=== PATIENT | female | born 1945 | race Caucasian/White ===

== ENCOUNTER 2021-07-02 08:48 | Day surgery (SDC) | payer MEDICARE, OTHER ==
[2021-07-01 16:13] LABS: BASOPHILS % (AUTO) 0.4 % (0-1); EOSINOPHILS # (AUTO) 0.2 X10'3 (0-0.9); EOSINOPHILS % (AUTO) 2.5 % (0-6); HEMATOCRIT 44.3 % (35.0-45.0); HEMOGLOBIN 15.3 g/dl (12.0-16.0); LYMPHOCYTES # (AUTO) 1.9 X10'3 (1.1-4.8); LYMPHOCYTES % (AUTO) 25.3 % (21-51); MEAN CORPUSCULAR HEMOGLOBIN 33.4 PG (27.0-31.0); MEAN CORPUSCULAR HGB CONC 34.6 g/dL (33.0-36.5); MEAN CORPUSCULAR VOLUME 96.7 FL (78-98); MONOCYTES # (AUTO) 0.6 X10'3 (0-0.9); MONOCYTES % (AUTO) 8.7 % (2-12); NEUTROPHILS # (AUTO) 4.7 X10'3 (1.8-7.7); NEUTROPHILS % (AUTO) 63.1 % (42-75); PLATELET COUNT 271 X10'3 (140-440); RED BLOOD COUNT 4.58 X10'6 (4.20-5.60); RED CELL DISTRIBUTION WIDTH 12.3 % (11.5-14.5); WHITE BLOOD COUNT 7.4 X10'3 (4.5-11.0)
[2021-07-01 16:26] LABS: PARTIAL THROMBOPLASTIN TIME 25 SECONDS (22-32)
[2021-07-01 16:27] LABS: ALBUMIN 3.9 G/DL (3.4-5.0); ANION GAP 10 (8-16); BLOOD UREA NITROGEN 13 MG/DL (7-18); BUN/CREATININE RATIO 13.5 (6.6-38.0); CALCIUM 9.5 MG/DL (8.5-10.1); CHLORIDE 104 MMOL/L (99-107); CREATININE 0.96 MG/DL (0.40-0.90); GLUCOSE 112 MG/DL (70-104); POTASSIUM 4.3 MMOL/L (3.5-5.1); SODIUM 140 MMOL/L (135-145); TOTAL CARBON DIOXIDE 26.1 MMOL/L (24-32); eGFR 57 ML/MIN
[2021-07-02] VITALS (14 sets, daily range): BP systolic 102–165; BP diastolic 50–91
[~2021-07-02] VITALS: Ht 177.8 cm; Wt 90.4 kg
[2021-07-02] MEDS ORDERED: LORazepam 0.5 MG tablet PO PRN (09:20)
[2021-07-02] MEDS ORDERED: normal saline 1,000 ML IV SCH (09:20)
[2021-07-02] MEDS ORDERED: diphenhydrAMINE 25mg capsule PO PRN (09:20)
[2021-07-02] MEDS ORDERED: verapamil 2.5 mg/ml inj IV ONE (09:21)
[2021-07-02] MEDS ORDERED: midazolam 1 mg/ML 2ml injection ONE (09:21)
[2021-07-02] MEDS ORDERED: nitroGLYCERIN-Tridil 50MG/D5W 250 ML IV ONE (09:21)
[2021-07-02] MEDS ORDERED: iohexol 350 MG/ML 50ML vial IV ONE ×3 (09:22→11:26)
[2021-07-02] MEDS ORDERED: iohexol 350MG/ML 100ml bottle IV ONE ×2 (09:22→10:46)
[2021-07-02] MEDS ORDERED: fentaNYL/PF 50MCG/1 ML 2ML syringe ONE (09:22)
[2021-07-02] MEDS ORDERED: heparin 1,000unit/ml 10ml vial 10 ML ONE (09:22)
[2021-07-02] MEDS ORDERED: LIDOcaine 1% (10mg/ml)w/preservative injection 20ml MDV ONE (09:22)
[2021-07-02] MEDS ORDERED: LIDOcaine/PRILOcaine 5gm cream TP ONE (09:30)
[2021-07-02] MEDS ORDERED: CLOP75TA34 PO (09:30)
[2021-07-02] MEDS ORDERED: MAGN400C PO (09:30)
[2021-07-02] MEDS ORDERED: ASPI-1265 PO (09:30)
[2021-07-02] MEDS ORDERED: METO100T7 PO (09:30)
[2021-07-02] MEDS ORDERED: ISOS60TA71 PO (09:30)
[2021-07-02] MEDS ORDERED: ROSU20TA2 PO (09:30)
[2021-07-02] MEDS ORDERED: NITR0.4T51 SL (09:30)
[2021-07-02] MEDS ORDERED: LIRA0.6P SQ (09:30)
[2021-07-02] MEDS ORDERED: heparin 25,000 UNIT/250ml bag 250 ML IV ONE (10:55)
[2021-07-02] MEDS ORDERED: clopidogrel 300mg tablet ONE (11:32)
[2021-07-02 11:53] LABS: ISTAT HGB ART 13.3 g/dl (12.0-16.0); ISTAT Hct ART 39 %PCV (35-48); ISTAT O2 SATURATION ARTERIAL 93 % (95-98); ISTAT SOURCE ART
[2021-07-02 16:11] LABS: ISTAT Hct MIX 38 %PCV (35-48); ISTAT O2 SATURATION MIX VENOUS 68 % (60-80); ISTAT SOURCE VEN
[2021-07-02] MEDS ORDERED: VITAMIN B3 PO (16:44)
[2021-07-02] MEDS ORDERED: [UNRECOGNIZED DRUG - CODE] TOP (16:44)
[2021-07-02] MEDS ORDERED: CHOL200012 PO (16:44)
[2021-07-02] MEDS ORDERED: MULT-1085 PO (16:44)
[2021-07-02] MEDS ORDERED: UBID100C16 PO (16:44)
[2021-07-02] MEDS ORDERED: FLUO15CR12 TOP (16:44)
[2021-07-02] MEDS ORDERED: CALC500T11 PO (16:44)
[2021-07-02] MEDS ORDERED: SPIR100T5 PO (16:44)
== END 2021-07-02 18:49 | disposition home or self-care (01) ==
LOC: SSTAY O 08:48
PROVIDERS: ATTEND Internal Medicine Cardiovascular Disease
DX: R94.39 Abnormal result of other cardiovascular function study (principal); T82.855A Stenosis of coronary artery stent, initial encounter; I25.119 Atherosclerotic heart disease of native coronary artery with unspecified angina pectoris; E11.9 Type 2 diabetes mellitus without complications; I10 Essential (primary) hypertension; E78.5 Hyperlipidemia, unspecified; I65.29 Occlusion and stenosis of unspecified carotid artery; I25.2 Old myocardial infarction; I35.0 Nonrheumatic aortic (valve) stenosis; I27.20 Pulmonary hypertension, unspecified; E55.9 Vitamin D deficiency, unspecified; G62.9 Polyneuropathy, unspecified; E66.9 Obesity, unspecified; Z68.28 Body mass index [BMI] 28.0-28.9, adult; Z88.8 Allergy status to other drugs, medicaments and biological substances; Z86.73 Personal history of transient ischemic attack (TIA), and cerebral infarction without residual deficits; Z79.899 Other long term (current) drug therapy; Z79.01 Long term (current) use of anticoagulants; Z79.82 Long term (current) use of aspirin; Z90.721 Acquired absence of ovaries, unilateral; Z95.5 Presence of coronary angioplasty implant and graft; Z82.49 Family history of ischemic heart disease and other diseases of the circulatory system; Y83.8 Other surgical procedures as the cause of abnormal reaction of the patient, or of later complication, without mention of misadventure at the time of the procedure; Y92.89 Other specified places as the place of occurrence of the external cause
CPT/HCPCS: 36415; 76937; 80048; 82803; 85014; 85025; 85347; 85610; 85730; 93005; 93460; 99152; 99153; C1725; C1751; C1769; C1874; C1894; C9600; J1644; J2001; J2250; J3010; J7030; Q0163; Q9967; 75710; A4620; A5120; A6258; J3490

== ENCOUNTER 2024-06-09 10:38 | Day surgery (SDC) | payer MEDICARE, OTHER ==
[2024-06-09] VITALS (18 sets, daily range): BP systolic 119–177; BP diastolic 42–117; PULSE 83–99; RESP 12–25; TEMP 98.7; O2SAT 94–98
[~2024-06-09] VITALS: Ht 177.8 cm; Wt 91.7 kg
[~2024-06-09 10:38] MED LIST: ASPI-1265 PO; CALC500T11 PO; CHOL200012 PO; CLOP75TA34 PO; FLUO15CR12 TOP; ISOS60TA71 PO; LIRA0.6P SQ; MAGN400C PO; METO100T7 PO; MULT-1085 PO; NITR0.4T51 SL; ROSU20TA2 PO; SPIR100T5 PO; UBID100C16 PO; VITAMIN B3 PO; [UNRECOGNIZED DRUG - CODE] TOP
[2024-06-09 11:35] LABS: BASOPHILS % (AUTO) 0.5 % (0-1); EOSINOPHILS # (AUTO) 0.2 X10'3 (0-0.9); EOSINOPHILS % (AUTO) 4.1 % (0-6); HEMATOCRIT 42.7 % (35.0-45.0); HEMOGLOBIN 14.2 g/dl (12.0-16.0); LYMPHOCYTES # (AUTO) 1.3 X10'3 (1.1-4.8); LYMPHOCYTES % (AUTO) 31.1 % (21-51); MEAN CORPUSCULAR HEMOGLOBIN 32.6 PG (27.0-31.0); MEAN CORPUSCULAR HGB CONC 33.4 g/dL (33.0-36.5); MEAN CORPUSCULAR VOLUME 97.6 FL (78-98); MEAN PLATELET VOLUME 7.8 FL (7.4-10.4); MONOCYTES # (AUTO) 0.4 X10'3 (0-0.9); NEUTROPHILS # (AUTO) 2.2 X10'3 (1.8-7.7); NEUTROPHILS % (AUTO) 54.3 % (42-75); PLATELET COUNT 179 X10'3 (140-440); RED BLOOD COUNT 4.37 X10'6 (4.20-5.60); WHITE BLOOD COUNT 4.1 X10'3 (4.5-11.0)
[2024-06-09 11:40] LABS: ALBUMIN 3.5 G/DL (3.4-5.0); ANION GAP 7 (8-16); BLOOD UREA NITROGEN 14 MG/DL (7-18); BUN/CREATININE RATIO 16.5 (10.0-20.0); CHLORIDE 108 MMOL/L (99-107); CREATININE 0.85 MG/DL (0.40-0.90); GLUCOSE 125 MG/DL (70-104); POTASSIUM 3.9 MMOL/L (3.5-5.1); SODIUM 140 MMOL/L (135-145); TOTAL CARBON DIOXIDE 24.9 MMOL/L (24-32); eCRCL 60 ML/MIN; eGFR 65 ML/MIN
[2024-06-09] MEDS ORDERED: verapamil 2.5 mg/ml inj IV ONE (11:48)
[2024-06-09] MEDS ORDERED: LIDOcaine 1% (10mg/ml) 2ml vial ONE (11:48)
[2024-06-09 11:49] LABS: APTT 24 SECONDS (22-32); PROTHROMBIN TIME 10.3 SECONDS (9.0-12.0)
[2024-06-09] MEDS ORDERED: fentaNYL/PF 50MCG/1 ML 2ML syringe ONE (11:49)
[2024-06-09] MEDS ORDERED: heparin 1,000unit/ml 10ml vial 10 ML ONE (11:49)
[2024-06-09] MEDS ORDERED: iohexol 350MG/ML 100ml bottle IV ONE ×2 (11:49→13:08)
[2024-06-09] MEDS ORDERED: midazolam 1 mg/ML 2ml injection ONE (11:49)
[2024-06-09] MEDS ORDERED: iohexol 350 MG/ML 50ML vial IV ONE (11:49)
[2024-06-09] MEDS ORDERED: nitroGLYCERIN 500mcg/5mL D5W 5 ML IV ONE ×2 (11:51→13:20)
[2024-06-09] MEDS: diphenhydrAMINE 25mg capsule PO PRN (11:53)
[2024-06-09] MEDS: LORazepam 0.5 MG tablet PO PRN (11:53)
[2024-06-09] MEDS: normal saline 1,000 ML IV SCH (11:54)
[2024-06-09] MEDS ORDERED: hydrALAZINE 20mg/ml inj. ONE (12:59)
[2024-06-09] MEDS ORDERED: heparin 25,000 UNIT/250ml bag 250 ML IV ONE (13:15)
[2024-06-09] MEDS ORDERED: clopidogrel 300mg tablet ONE (13:24)
[2024-06-09 13:34] LABS: ISTAT HGB ART 13.6 g/dl (12.0-16.0); ISTAT Hct ART 40 %PCV (35-45); ISTAT O2 SATURATION ARTERIAL 93 % (95-98); ISTAT SOURCE ART
[2024-06-09] MEDS ORDERED: CLOP75TA34 PO (14:43)
[2024-06-09] MEDS ORDERED: ASPI-611 PO (14:43)
[2024-06-10] MEDS ORDERED: clopidogrel 75mg tablet PO SCH (08:00)
[2024-06-12 07:15] LABS: ISTAT HGB MIX 13.3 g/dl (12.0-16.0); ISTAT Hct MIX 39 %PCV (35-45); ISTAT O2 SATURATION MIX VENOUS 68 % (60-80); ISTAT SOURCE VEN
== END 2024-06-09 19:20 | disposition home or self-care (01) ==
LOC: SSTAY O 10:38
PROVIDERS: ATTEND Internal Medicine Cardiovascular Disease
DX: I35.0 Nonrheumatic aortic (valve) stenosis (principal); I25.119 Atherosclerotic heart disease of native coronary artery with unspecified angina pectoris; I49.3 Ventricular premature depolarization; I10 Essential (primary) hypertension; E11.42 Type 2 diabetes mellitus with diabetic polyneuropathy; E78.5 Hyperlipidemia, unspecified; E66.9 Obesity, unspecified; I25.2 Old myocardial infarction; Z79.82 Long term (current) use of aspirin; Z79.899 Other long term (current) drug therapy; Z90.721 Acquired absence of ovaries, unilateral; Z90.79 Acquired absence of other genital organ(s); Z95.5 Presence of coronary angioplasty implant and graft; Z98.890 Other specified postprocedural states; Z68.29 Body mass index [BMI] 29.0-29.9, adult; Z88.8 Allergy status to other drugs, medicaments and biological substances; Z82.49 Family history of ischemic heart disease and other diseases of the circulatory system
CPT/HCPCS: 36415; 80048; 82803; 82948; 85014; 85025; 85347; 85610; 85730; 92920; 93005; 93460; 99152; 99153; A6258; A6402; C1725; C1751; C1769; C1894; J0360; J1644; J2001; J2250; J3010; J3490; J7030; Q0163; Q9967; Z7610

== ENCOUNTER 2024-06-19 08:12 | Outpatient (CLI) | payer MEDICARE, OTHER ==
[~2024-06-19 08:12] MED LIST changes: +ASPI-611 PO; -CALC500T11 PO; -FLUO15CR12 TOP; -ISOS60TA71 PO; -LIRA0.6P SQ; -METO100T7 PO; -MULT-1085 PO; -NITR0.4T51 SL; -UBID100C16 PO; -[UNRECOGNIZED DRUG - CODE] TOP
[2024-06-19 09:03] LABS: BASOPHILS % (AUTO) 0.6 % (0-1); EOSINOPHILS # (AUTO) 0.2 X10'3 (0-0.9); EOSINOPHILS % (AUTO) 3.2 % (0-6); HEMOGLOBIN 14.9 g/dl (12.0-16.0); LYMPHOCYTES # (AUTO) 1.2 X10'3 (1.1-4.8); LYMPHOCYTES % (AUTO) 25.5 % (21-51); MEAN CORPUSCULAR HGB CONC 33.9 g/dL (33.0-36.5); MEAN CORPUSCULAR VOLUME 97.6 FL (78-98); MONOCYTES # (AUTO) 0.5 X10'3 (0-0.9); MONOCYTES % (AUTO) 10.7 % (2-12); NEUTROPHILS # (AUTO) 2.9 X10'3 (1.8-7.7); PLATELET COUNT 221 X10'3 (140-440); RED BLOOD COUNT 4.51 X10'6 (4.20-5.60); RED CELL DISTRIBUTION WIDTH 12.9 % (11.5-14.5); WHITE BLOOD COUNT 4.9 X10'3 (4.5-11.0)
[2024-06-19 09:12] LABS: APTT 25 SECONDS (22-32); PROTHROMBIN TIME 10.6 SECONDS (9.0-12.0)
[2024-06-19 10:05] LABS: ALANINE AMINOTRANSFERASE 144 U/L (12-78); ALBUMIN 3.7 G/DL (3.4-5.0); ALBUMIN/GLOBULIN RATIO 1.1 (1.1-1.5); ALKALINE PHOSPHATASE 63 IU/L (46-116); ANION GAP 8 (8-16); ASPARTATE AMINO TRANSFERASE 54 U/L (10-37); BILIRUBIN,TOTAL 0.4 MG/DL (0.1-1.0); BLOOD UREA NITROGEN 13 MG/DL (7-18); BUN/CREATININE RATIO 10.4 (10.0-20.0); CALCIUM 9.3 MG/DL (8.5-10.1); CHLORIDE 103 MMOL/L (99-107); CREATININE 1.25 MG/DL (0.40-0.90); GLUCOSE 171 MG/DL (70-104); POTASSIUM 4.1 MMOL/L (3.5-5.1); PRO BRAIN NATRIURETIC PEPTIDE 102 PG/ML (0-450); SODIUM 139 MMOL/L (135-145); TOTAL CARBON DIOXIDE 28.5 MMOL/L (24-32); TOTAL PROTEIN 7.2 G/DL (6.4-8.2); eGFR 42 ML/MIN
[2024-07-13] MEDS ORDERED: ISOS20TA15 PO (11:21)
[2024-07-13] MEDS ORDERED: CLOP-32 PO (11:21)
[2024-07-19] MEDS ORDERED: ISOS30TA84 PO (20:43)
[2024-07-23] MEDS ORDERED: ATOR10TA70 PO (20:44)
[2024-07-23] MEDS ORDERED: LIRA0.6P3 SQ (20:44)
[2024-07-25] MEDS ORDERED: ATOR20TA66 PO (08:33)
== END 2024-06-19 23:59 | disposition home or self-care (01) ==
LOC: RAD 08:12
PROVIDERS: ATTEND Internal Medicine Cardiovascular Disease
DX: I65.22 Occlusion and stenosis of left carotid artery (principal); I35.0 Nonrheumatic aortic (valve) stenosis; R06.02 Shortness of breath; I65.29 Occlusion and stenosis of unspecified carotid artery
CPT/HCPCS: 36415; 71046; 71275; 74174; 75572; 80053; 83880; 85025; 85610; 85730; 93880; Q9967

== ENCOUNTER 2024-06-22 15:28 | Outpatient (CLI) | payer MEDICARE, OTHER ==
[~2024-06-22] VITALS: Ht 152.4 cm; Wt 91.0 kg
[~2024-06-22 15:28] MED LIST changes: +IODIXANOL 320 MG/ML INFUS..BTL 100ML IV ONE
[2024-06-22 16:13] VITALS: BP_SYST 178; BP_SYST 203; BP_DIAS 97; BP_DIAS 99; PULSE 96; RESP 18; TEMP 96.5; O2SAT 94
== END 2024-06-22 23:59 | disposition home or self-care (01) ==
LOC: TAVR 15:28
PROVIDERS: ATTEND Internal Medicine Cardiovascular Disease
DX: I35.0 Nonrheumatic aortic (valve) stenosis (principal); I70.0 Atherosclerosis of aorta; K57.30 Diverticulosis of large intestine without perforation or abscess without bleeding; I65.22 Occlusion and stenosis of left carotid artery; I12.9 Hypertensive chronic kidney disease with stage 1 through stage 4 chronic kidney disease, or unspecified chronic kidney disease; E11.22 Type 2 diabetes mellitus with diabetic chronic kidney disease; N18.30 Chronic kidney disease, stage 3 unspecified; I25.10 Atherosclerotic heart disease of native coronary artery without angina pectoris; E78.5 Hyperlipidemia, unspecified; Z86.73 Personal history of transient ischemic attack (TIA), and cerebral infarction without residual deficits; Z79.82 Long term (current) use of aspirin; Z79.84 Long term (current) use of oral hypoglycemic drugs; Z79.899 Other long term (current) drug therapy; Z98.890 Other specified postprocedural states
CPT/HCPCS: 71275; 74174; 75572; Q9967